=== PATIENT | female | born 1955 | race Caucasian/White ===

== ENCOUNTER → 2016-10-15 | Outpatient (CLI) | payer BC ==
--- NOTE | 2016-10-15 11:31 | RADIOLOGY REPORT PS360 ---
BONE DENSITOMETRY(HIP:LT SPINE HISTORY: POST MENOPAUSAL ORDERING PHYSICIAN: Cedric Lam MD PATIENT AGE: 61 years COMPARISON: 01/12/2015 FINDINGS: The BMD measured from L1 L4 is 0.943 g/sq cm with a T score of -2.0. This is increased by 2.7% compared to the previous exam. The mean density of the hips is 0.878 g/sq cm the T score of -1.1 and has increased by 3.7% compared to the previous exam. This patient is considered osteopenic. There is moderate fracture risk and treatment is a device. IMPRESSION: Osteopenia. Recommend follow-up exam October 2018
== END ==
LOC: RAD 10:00
DX: Z01.419 Encounter for gynecological examination (general) (routine) without abnormal findings (principal)

== ENCOUNTER → 2017-02-12 | Outpatient (CLI) | payer BC ==
--- NOTE | 2017-02-16 10:09 | RADIOLOGY REPORT PS360 ---
DIG MAMM-SCREEN APM W/CAD CAD Screening COMPARISON: Digital mammograms 02/08/2016 and 01/12/2015 INDICATION: There is a history of breast cancer in patient's maternal great aunt. TECHNIQUE: Standard CC and MLO images were obtained. R2 CAD reviewed. FINDINGS: The breasts are composed primarily of fat with scattered fibroglandular densities throughout each breast. There is no suspicious lesion and there are no suspicious microcalcifications. IMPRESSION: Fibrofatty parenchyma with no suspicious lesion seen recommend yearly follow-up BI-RADS CATEGORY: 1_Negative RECOMMENDED FOLLOWUP: 12M 12 MONTH FOLLOW-UP (A letter has been sent to the patient regarding results of the study.)
== END ==
LOC: RAD 17:00
DX: Z12.31 Encounter for screening mammogram for malignant neoplasm of breast (principal)
CPT/HCPCS: G0202